=== PATIENT | female | born 1980 | race Caucasian/White ===

== ENCOUNTER 2021-08-17 07:50 | Emergency (ER) | payer BC, MEDICAID, OTHER ==
[~2021-08-17] VITALS: Ht 157.5 cm; Wt 79.5 kg
[~2021-08-17 07:50] MED LIST: DIAZ5TAB PO; LIDO20SO16 PO; MECL25TA3 PO; NO HOME MEDS; ONDA4TAB6 PO
[2021-08-17 07:53] VITALS: BP 129/83
[2021-08-17] MEDS ORDERED: ibuprofen tablet 400 MG TABLET PO ONE (08:55)
[2021-08-17] MEDS ORDERED: CEPH250T PO (09:23)
[2021-08-17] MEDS ORDERED: IBUP-1985 PO (09:23)
== END 2021-08-17 09:43 | disposition home or self-care (01) ==
LOC: ER 07:50
DX: L60.0 Ingrowing nail (principal); Z79.899 Other long term (current) drug therapy; Z79.1 Long term (current) use of non-steroidal anti-inflammatories (NSAID)
CPT/HCPCS: 99283

== ENCOUNTER 2021-12-11 09:51 | Emergency (ER) | payer BC ==
[~2021-12-11] VITALS: Ht 157.5 cm; Wt 82.0 kg
[~2021-12-11 09:51] MED LIST changes: +CEPH250T PO; +IBUP-1985 PO
[2021-12-11 09:55] VITALS: BP 136/93
[2021-12-11] MEDS ORDERED: AMOX-117 PO (10:23)
== END 2021-12-11 10:42 | disposition home or self-care (01) ==
LOC: ER 09:52
DX: R59.1 Generalized enlarged lymph nodes (principal); H66.92 Otitis media, unspecified, left ear; Z79.899 Other long term (current) drug therapy
CPT/HCPCS: 99283